=== PATIENT | male | born 1940 | race Caucasian/White ===

== ENCOUNTER → 2018-07-16 10:00 | Outpatient (CLI) | payer OTHER, SELFPAY ==
[2018-07-16 11:25] LABS: CREATININE 1.32 mg/dL (0.70-1.30); Estimated GFR 52.59 (mL/min/1.73m2); Glucose 86 mg/dL (70-100); Potassium 4.6 mmol/L (3.5-5.1)
== END ==
PROVIDERS: PCP Family Medicine; Visit Provider Family Medicine
DX: I10 Essential (primary) hypertension (principal); E74.39 Other disorders of intestinal carbohydrate absorption
CPT/HCPCS: 36415; 82947; 82565; 84132

== ENCOUNTER → 2018-07-26 08:21 | Outpatient (BNVA) | payer OTHER, SELFPAY | PROVIDERS: PCP Family Medicine; Referring Provider Family Medicine; Visit Provider Student in an Organized Health Care Education/Training Program | DX: M17.0 Bilateral primary osteoarthritis of knee (principal) | CPT/HCPCS: 99204; 99213; NC OV ==

== ENCOUNTER 2018-07-26 10:30 | Outpatient (CLI) | payer OTHER, SELFPAY ==
--- NOTE | 2018-07-26 08:34 | DI.RAD_ITS ---
SYMPTOM/DIAGNOSIS: LEFT KNEE PAIN LEFT KNEE: Comparison is made with 06 Aug 2012. There is now moderate to severe narrowing of the medial femoral tibial joint space and periarticular sclerosis. There is mild periarticular spurring. The lateral femoral tibial joint space appears well maintained. Narrowing and irregularity is seen at the patellofemoral joint which shows mild spurring. Mild spurring is seen from the tibial spines. Vascular calcifications are present. 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
--- NOTE | 2018-07-26 08:34 | DI.RAD_ITS ---
SYMPTOM/DIAGNOSIS: RIGHT KNEE PAIN RIGHT KNEE: Comparison is made with 06 Aug 2012. The femoral tibial joint spaces are well maintained. There is mild spurring from the femoral condyles, tibial plateaus and tibial spine. There is spurring and narrowing of the patellofemoral joint. No joint effusion is seen. Vascular calcifications are noted. IMPRESSION: Patellofemoral degenerative changes.
== END 2018-07-26 10:50 ==
PROVIDERS: PCP Family Medicine; Visit Provider Student in an Organized Health Care Education/Training Program
DX: M25.561 Pain in right knee (principal); M25.562 Pain in left knee; M17.0 Bilateral primary osteoarthritis of knee
CPT/HCPCS: 73562

== ENCOUNTER 2018-08-04 07:47 | Emergency (ER) | payer OTHER, SELFPAY ==
[2018-08-04 07:52] VITALS: BP 136/86; PULSE 86; RESP 16; TEMP 36.7; O2SAT 95
--- NOTE | 2018-08-04 08:04 | W.ED.GENAD ---
Discharge Plan Disposition Patient Disposition: HOME Discharge Details Chief Complaint: Cellulitis Clinical Impression: Abrasion forearm Primary Care Provider: Jackson Bocanegra ED Provider: Brad Kennedy Home Meds and New Rx's Prescriptions: New cephalexin 500 mg capsule 500 mg PO QID 7 Days Qty: 28 RF: 0 Continue multivitamin 1 EACH tablet 1 ea PO DAILY RF: 0 aspirin [Aspir-81] 81 MG tablet,delayed release (DR/EC) 81 mg PO DAILY RF: 0 albuterol sulfate [ProAir HFA] 8.5 GM HFA aerosol inhaler 2 puff Inhalation q 4 h prn Qty: 1 RF: 0 inhalational spacing device [Aerochamber Mini] 1 EACH spacer 1 ea Miscellaneous PRN Qty: 1 RF: 0 losartan 50 MG tablet 50 mg PO DAILY Qty: 90 RF: 3 simvastatin [Zocor] 40 MG tablet 40 mg PO DAILY Qty: 90 RF: 4 indomethacin 25 MG capsule 25 mg PO TID PRNQty: 30 RF: 0 Discharge Instructions Instructions: Abrasion (ED) Additional Instructions: if you have redness spreading up the arm or hands start taking the antibiotics if you have severe pain or fevers return to the emergency department Discharge Data Discharge Physician: Brad Kennedy Medical Decision Making MDM Narrative Medical decision making narrative: Patient is working for [employer] for [employer] and they were tearing a roof off yesterday and he wasn't wearing gloves and sustained multiple abrasions to the arms and hands. NO lacs to require sutures. NO evidence of infection at this time but advised if he has worsening redness to start taking the abx that I prescribed. Has full rom of all joints and fingers and no pain to suggest fx so do not feel imaging indicated Differential Diagnosis abrasions lacerations, sprain HPI - General Adult General Mode of arrival: ambulatory. Date/Time Provider Initiated Documentation: 08/04/18 07:50. Limitations to Documentation: no limitations. Information obtained by: patient. History of Present Illness 78 year old M presents to the emergency department with the chief complaint of scratches on arms, described as moderate, with intensity rated at 3. Quality is described as aching, and is localized to the upper extremity. Patient reports no radiation. Patient started experiencing this day(s) (1) and it has been constant. No relieving factors improve symptom(s), No exacerbating factors reported . Patient notes no other symptoms.. Patient did receive the following treatments prior to arrival, none Related Data Home Medications Medication Instructions Recorded Confirmed aspirin [Aspir-81] 81 mg PO DAILY tab-cap 04/20/13 08/04/18 multivitamin 1 ea PO DAILY 04/20/13 08/04/18 albuterol sulfate [ProAir HFA] 2 puff INHALATION q 4 h prn #1 08/29/16 08/04/18 inhaler inhalational spacing device #1 aer 08/29/16 08/04/18 [Aerochamber Mini] indomethacin 25 mg PO TID PRN #30 tab-cap 07/16/18 08/04/18 Previous Rx's Medication Instructions Recorded losartan 50 mg PO DAILY #90 tab-cap 04/20/18 simvastatin [Zocor] 40 mg PO DAILY #90 tab-cap 07/16/18 cephalexin 500 mg PO QID 7 Days #28 cap 08/04/18 Allergies Allergy/AdvReac Type Severity Reaction Status Date / Time FIRE ANT Allergy Unknown Uncoded 08/04/18 08:00 POLLEN Allergy Unknown Uncoded 08/04/18 08:00 General Stated Complaint: Cellulitis ZAK: 4 Review of Systems Review of Systems All systems reviewed & are unremarkable except as noted in HPI and below Constitutional Denies chills, Denies fever(s) and Denies weakness Eyes Patient Denies loss of vision ENT Denies change in voice Cardiovascular Denies chest pain and Denies dyspnea Respiratory Denies dyspnea Gastrointestinal Denies abdominal pain, Denies nausea and Denies vomiting Genitourinary Denies dysuria Musculoskeletal Denies joint swelling Integumentary/Breasts Denies rash Neurologic Denies loss of vision and Denies weakness Psychiatric Denies depression Endocrine Denies cold intolerance and Denies heat intolerance Allergic/Immunologic Reports urticaria PFSH Family History Mother Neoplasm Father Heart disease Leukemia Sister Diabetes Hyperlipidemia Asthma Grandfather Heart disease Cerebrovascular accident Grandfather No problems noted. Grandmother No problems noted. Grandmother Cerebrovascular accident Son Substance abuse Essential hypertension Daughter No problems noted. Social History Smoking/Tobacco Use Status: Never Surgical History Hemorrhoidal Banding REMOVAL OF VARICOSE VEINS (~03/2014) SHOULDER REPLACEMENT Exam Const General: no acute distress Orientation: alert [facility] Head: normal to inspection Ears: external ears normal General nose exam: external nose normal Mouth: moist mucous membranes Eyes General: appearance normal, both eyes and all related structures Neck Neck: normal visual inspection Resp Effort & Inspection: normal respiratory effort and able to speak in complete sentences Cardio Rate: regular rate Skin Nails: other (multiple superficial abrasions to both forearms and hands, right middle finger with anterior contusions, full rom of the finger with intact sensation and no pain on palpation) Neuro General: alert and oriented x3 Extrem General: full ROM and normal capillary refill Psych Mental Status: mental status grossly normal Course Vital Signs Temperature 36.7 C 08/04/18 07:52 Pulse 86 08/04/18 07:52 Respiratory Rate 16 08/04/18 07:52 Blood Pressure 136/86 08/04/18 07:52 Pulse Oximetry 95 08/04/18 07:52 Temperature 36.7 C 08/04/18 07:52 Pulse 86 08/04/18 07:52 Respiratory Rate 16 08/04/18 07:52 Blood Pressure 136/86 08/04/18 07:52 Pulse Oximetry 95 08/04/18 07:52
== END 2018-08-04 08:14 | disposition home or self-care (01) ==
PROVIDERS: Emergency Provider Emergency Medicine; PCP Family Medicine
DX: S50.811A Abrasion of right forearm, initial encounter (principal); S50.812A Abrasion of left forearm, initial encounter; W45.0XXA Nail entering through skin, initial encounter; I10 Essential (primary) hypertension
CPT/HCPCS: 99283

== ENCOUNTER 2019-07-14 01:11 | Outpatient (CLI) | payer OTHER, SELFPAY ==
[2019-07-14 12:51] LABS: CREATININE 1.38 mg/dL (0.70-1.30); Estimated GFR 49.83 (mL/min/1.73m2); Potassium 4.7 mmol/L (3.5-5.1); Uric Acid 7.9 mg/dL (3.5-7.2)
[2019-07-14 13:17] LABS: Calculated LDL 73 mg/dL; Cholesterol 124 mg/dL (50-200); HDL Cholesterol 40 mg/dL (40-60); Triglyceride 59 mg/dL (30-150)
== END 2019-07-14 01:31 ==
PROVIDERS: PCP Family Medicine; Visit Provider Family Medicine
DX: I10 Essential (primary) hypertension (principal); E78.5 Hyperlipidemia, unspecified; M10.9 Gout, unspecified
CPT/HCPCS: 36415; 80061; 82565; 84132; 84550

== ENCOUNTER 2019-08-29 06:59 | Outpatient (CLI) | payer OTHER, SELFPAY ==
--- NOTE | 2019-08-29 09:47 | DI.RAD_ITS ---
EXAM: XR HIP RT COMPLETE AP PELVIS INDICATION: hip pain on right, M25.551, back pain, M54.9 dorsalgia. COMPARISON: XR LUMBAR SPINE COMPLETE from 08/29/2019 TECHNIQUE: 2D digital imaging was performed. FINDINGS: Three views were obtained. There is marked loss of the cartilaginous joint spaces of both hips with subchondral sclerosis of the acetabular leading and to a lesser degree the femoral heads bilaterally. Mild hypertrophic spurring of the acetabula noted bilaterally as well. 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
--- NOTE | 2019-08-29 09:47 | DI.RAD_ITS ---
EXAM: XR LUMBAR SPINE COMPLETE INDICATION: rt hip pain, M25.551. COMPARISON: No exams were available for comparison TECHNIQUE: 2D digital imaging was performed. FINDINGS: Five views were obtained. There is a moderate left convex lumbar scoliosis. There is loss of disc h eight throughout the lower thoracic lumbar spine consistent with disc degeneration. Mild endplate co mpression fractures noted at multiple levels, no significant anterior compression fracture seen. Obi y prominent vertebral endplate and facet hypertrophic degenerative changes noted. IMPRESSION: scoliosis and severe DJD.
== END 2019-08-29 07:19 ==
PROVIDERS: PCP Family Medicine; Visit Provider Family Medicine
DX: M25.551 Pain in right hip (principal); M54.5 Low back pain; M16.0 Bilateral primary osteoarthritis of hip; M41.26 Other idiopathic scoliosis, lumbar region; M51.36 Other intervertebral disc degeneration, lumbar region
CPT/HCPCS: 72110; 73502

== ENCOUNTER 2020-03-30 01:48 | Outpatient (CLI) | payer OTHER, SELFPAY ==
[2020-03-30 11:29] LABS: HCT 49.3 % (40.0-50.0); HGB 16.8 g/dL (13.5-17.5); Mean Corp. HGB Concentration 34.1 g/dL (32.0-36.0); Mean Corpuscular Hemoglobin 30.7 pg (27.0-33.0); Mean Platelet Volume 10.1 fL (8.0-11.0); Platelet Count 192 x1000/uL (130-400); RBC 5.48 m/cumm (4.50-6.00); RBC Distribution Width 13.8 % (11.8-14.1); White Blood Cell Count 8.02 k/cumm (4.4-10.8)
[2020-03-30 13:13] LABS: Anion Gap 8.3 mmol/L (3-11); BUN 21 mg/dL (7-18); CO2 27.7 mmol/L (21.0-32.0); CREATININE 1.52 mg/dL (0.70-1.30); Calcium 9.6 mg/dL (8.5-10.1); Chloride 104 mmol/L (98-107); Estimated GFR 44.58 (mL/min/1.73m2); Glucose 88 mg/dL (74-106); Potassium 4.7 mmol/L (3.5-5.1); Sodium 140 mmol/L (136-145)
[2020-03-31 14:51] LABS: COVID-19 RT-PCR Result NEGATIVE (Negative)
== END 2020-03-30 02:08 ==
PROVIDERS: PCP Family Medicine; Visit Provider Student in an Organized Health Care Education/Training Program
DX: M25.562 Pain in left knee (principal); M17.12 Unilateral primary osteoarthritis, left knee; Z11.59 Encounter for screening for other viral diseases; Z01.818 Encounter for other preprocedural examination; Z01.812 Encounter for preprocedural laboratory examination
CPT/HCPCS: 36415; 80048; 85027; U0003

== ENCOUNTER 2020-03-30 10:43 | Outpatient (CLI) | payer OTHER, SELFPAY ==
--- NOTE | 2020-03-30 10:15 | DI.RAD_ITS ---
EXAM: XR STANDING ALIGNMENT CLINICAL HISTORY: PRE OP TECHNIQUE: COMPARISON: CR XR KNEE LT 1V from 03/30/2020 FINDINGS: Standing AP alignment views of both lower extremities and lateral view of the left knee were obtained . There is marked loss of the cartilaginous joint spaces of both hips with prominent marginal osteophyt e formation of the acetabula E and to a lesser degree femoral heads. Findings are consistent with mo derate to severe degenerative change. There is marked narrowing of medial tibiofemoral cartilaginous joint space of the left knee with mild subchondral sclerosis of the proximal tibia and mild marginal osteophyte formation. No other signif icant findings. IMPRESSION: DJD left knee medial tibiofemoral joint and both hips.
== END 2020-03-30 11:03 ==
PROVIDERS: PCP Family Medicine; Referring Provider Family Medicine; Visit Provider Student in an Organized Health Care Education/Training Program
DX: M25.562 Pain in left knee (principal); M17.12 Unilateral primary osteoarthritis, left knee; M16.0 Bilateral primary osteoarthritis of hip
CPT/HCPCS: 73560; 77073

== ENCOUNTER 2020-04-03 07:26 | Observation (INO) | payer OTHER, SELFPAY ==
[2020-04-03] VITALS (9 sets, daily range): BP systolic 116–135; BP diastolic 78–95; PULSE 61–77; RESP 13–20; TEMP 36.4–36.8; O2SAT 94–99
[2020-04-03] MEDS: Celecoxib 200 MG CAP 400 MG PO (08:06)
[2020-04-03] MEDS: Acetaminophen 500 MG TAB 1000 MG PO (08:06)
[2020-04-03] MEDS: Gabapentin 300 MG CAP PO (08:06)
[2020-04-03] MEDS: Lactated Ringers 1,000 ML 80 ML IV (08:07)
[2020-04-03] MEDS: ceFAZolin 2 GM/50 ML BAG IVPB (09:41)
[2020-04-03] MEDS: Ketorolac 30 MG/ML VIAL (10:21)
[2020-04-03] MEDS: Bupivacaine 0.25% Pres-Free 30 ML VIAL (10:23)
[2020-04-03] MEDS: Normal Saline 20 ML VIAL (10:24)
--- NOTE | 2020-04-03 11:32 | DSE_ITS ---
Date of service: 04/03/20 Time of Service: 13:19 DS: Diagnosis Discharge Diagnosis (1) Unilateral primary osteoarthritis, left knee: Status: Chronic Discharge Plan Disposition Patient Disposition: HOME Condition: Good Discharge Details Reason For Visit: (L) TKR Admit Date/Time: 04/03/20 07:26 Admit Provider: Dallin Robles Attending Provider: Dallin Robles Primary Care Provider: Jackson Bocanegra Hospital Course Hospital Course: Patient was admitted to the medical/surgical floor following the procedure. The surgery was tolerated well without any notable medical, surgical, or anesthetic complications. Mobilization began postoperatively. Vitals were stable. Physical therapy worked with the patient and was cleared for discharge home. No acute medical issues. Pain was controlled on oral regimen. Home Meds and New Rx's Prescriptions: New celecoxib 200 mg capsule 200 mg PO BID PRN (Reason: pain) Qty: 60 RF: 1 aspirin 81 mg tablet,delayed release (DR/EC) 81 mg PO BID Qty: 60 RF: 0 acetaminophen 500 mg tablet 1,000 mg PO Q8H PRN (Reason: pain) Qty: 90 RF: 3 pantoprazole 40 mg tablet,delayed release (DR/EC) 40 mg PO DAILY Qty: 30 RF: 0 gabapentin 300 mg capsule 300 mg PO QHS Qty: 7 RF: 0 oxycodone 5 mg tablet 5 mg PO Q4H Qty: 12 RF: 0 Continued losartan 50 mg tablet 50 mg PO DAILY Qty: 90 RF: 3 simvastatin [Zocor] 40 mg tablet 40 mg PO DAILY Qty: 90 RF: 4 multivitamin 1 EACH tablet 1 ea PO DAILY RF: 0 albuterol sulfate [ProAir HFA] 8.5 GM HFA aerosol inhaler 2 puff Inhalation q 4 h prn Qty: 1 RF: 0 indomethacin 25 mg capsule 25 mg PO TID PRN (Reason: gout) Qty: 30 RF: 1 Discontinued aspirin [Aspir-81] 81 MG tablet,delayed release (DR/EC) 81 mg PO DAILY RF: 0 Discharge Instructions Additional Instructions: Dr. Robles?s Total Knee Discharge Instructions Activity: The most important activity is to walk. You should try to take short walks a few times a day. It is important that when resting you work on keeping the knee straight. Avoid putting a pillow behind the knee as this will encourage flexion. Work on range of motion exercises as provided by Physical Therapy and the preoperative booklet. - Start outpatient physical therapy within 2 weeks. - You should wear the JULIAN hose on both legs for 2 weeks. Dressing: Keep the surgical dressing (Mepilex) in place for at least one week. If you went home on the surgical day, you should remove the JOAQUIM wrap on the second day and then apply the JULIAN hose. The dressing may get wet after 3 days but avoid soaking the dressing. If it gets wet, just lightly pat dry. Most patient prefer to cover with ClingWrap or Saran Wrap to keep the dressing dry. After the first week, the dressing may be removed and replaced with light gauze and tape or nothing. Medications: - You should take Tylenol and anti-inflammatory Celebrex as your primary pain control medications. If Celebrex is not covered, you can use Ibuprofen 600mg every 8 hours. - You have been prescribed a stronger pain medication Oxycodone for breakthrough pain, take as needed as prescribed. - You have also been prescribed a stomach acid reduction agent Pantoprozole to help reduce stomach acid and reflux. - You will be taking Aspirin 81mg twice a day for DVT prevention unless instru cted otherwise. - If you have constipation you should take Colace or Miralax (both [id number]). It takes most people 3-4 days to have a bowel movement. Follow-up: 2 weeks. You should also call physical therapy to work on scheduling outpatient therapy sessions which can begin at 2 weeks. If you have any acute concerns or questions, please do not hesitate to contact the office at [phone]. You may contact Dr. Robles with any questions after hours through the hospital at [phone] or on his cell phone at [phone]. Referrals: [facility] [Provider Group] - 04/17/20 Dallin Robles MD [ [facility] STAFF PHYSICIAN] - Activity:: Activity as Tolerated Equipment/Supplies:: Walker Diet:: As Tolerated Discharge Orders Discharge Orders: Discharge Order (Routine); Ordered 04/03/20 Ordered By: Dallin Robles DS: Summary Status at Discharge Functional status at discharge: uses cane/walker Overall status at discharge: patient is progressing back to baseline Mental Status: mental status grossly normal Speech and Movement: speech and movement normal Mood: congruent mood Affect: normal affect Exam Psych Mental Status: mental status grossly normal Speech and Movement: speech and movement normal Mood: congruent mood Affect: normal affect DS: Data Vitals/I&O Vitals and I&O: Vital Signs Temperature 36.8 C 04/03/20 07:54 Pulse 68 04/03/20 07:54 Pulse Rhythm Regular 04/03/20 07:54 Respiratory Rate 18 04/03/20 07:54 Blood Pressure 135/94 H 04/03/20 07:54 Pulse Oximetry 99 04/03/20 07:54 Oxygen Delivery Method Room Air 04/03/20 07:54 Oxygen Flow Rate 0 04/03/20 07:54 Intake & Output 04/02/20 04/02/20 04/03/20 11:59 23:59 11:59 Intake Total 410 / 410 Output Total 300 / 300 Balance 110 / 110 Weight 106.1 kg Intake: IV 410 / 410 Output: Estimated Blood Loss 300 / 300 PFSH Surgical History Hemorrhoidal Banding REMOVAL OF VARICOSE VEINS (~03/2014) SHOULDER REPLACEMENT 03/2015; LEFT, 09/2016; RIGHT Family History Mother , 59 Breast cancer Cancer of spine Father , 74 Heart disease Leukemia Sister Diabetes Hyperlipidemia Asthma Maternal Grandfather , 56 Heart disease Stroke Paternal Grandfather , ACCIDENTAL at age 72. No problems noted. Maternal Grandmother , 63 No problems noted. Paternal Grandmother , 92 Stroke Son , 27 Substance abuse Essential hypertension Daughter No problems noted. Social History Smoking/Tobacco Use Status: Never Alcohol Intake: current Alcohol Intake frequency: 0-2 drinks per day Alcohol type: beer Details: 0.5-1 beer/daily Drug use: Never Substance use type: does not use Caregiver/Support person: No Household members: spouse Housing: house Communication Needs: Corrective Lenses Pets and animals: No Sexually active: Yes Do you think of yourself as: straight/heterosexual Current gender identity: male What is your relationship status?: How often do you talk on the phone with friends or family?: three or more times per week How often do you get together with friends or relatives?: three or more times per week How often do you attend restorationist or baptist services?: 4 or more times per year Do you belong to any clubs or organized social groups?: no Panel score (0-1 are the most socially isolated patients): 3 What type of physical activity do you participate in: walking Duration: 60-90 minutes/day Frequency: 5-6 times per week Elisha/Rastafari: Rastafarian Special elisha needs: No Seatbelt use: always Helmet use: Yes Helmet use: always Drive intox or ride w/intox driver supervisor: No Do you feel safe in your relationship?: Yes
[2020-04-03] MEDS: ceFAZolin 1 GM/50 ML BAG IVPB (13:08)
--- NOTE | 2020-04-03 13:24 | IN_ITS ---
Date of service: 04/03/20 Time of Service: 13:24 PT Notes Visit Reasons: (L) TKR Physical Therapy Inpatient Initial Evaluation Date: 04/03/2020 Referring Doctor: Dallin Robles MD PT Orders: PT CONSULT: Status post Ortho surgery. Status post left TKA. Hopeful same-day discharge Precautions: Fall. Standard. WBAT on left LE. Patient Profile/Admitting Diagnosis: Fabrizio is a 71 [id number] male with primary unilateral osteoarthritis of left knee status post total knee arthroplasty on postoperative day 0. PMHX: Surgical History (Updated 03/30/20 @ 10:43 by Anupama Collins) Hemorrhoidal Banding REMOVAL OF VARICOSE VEINS (~03/2014) SHOULDER REPLACEMENT 03/2015; LEFT, 09/2016; RIGHT Social History/Home Situation: Fabrizio lives with in a private home with 2 steps to enter and a rail on one side. Fabrizio is independent with all aspects of ADLs prior to surgery without any assistive ambulatory device nor adaptive equipment. Equipment Owned/DME: Front wheeled walker Subjective: Fabrizio looks forward to getting his physical therapy done today and is hopeful to be going home later this afternoon. He reports no pain nor discomfort on the left knee. He denies any headache, chest pain, and dizziness throughout session. He states that he will follow everything that needs to be done so that he can recover the fastest from the surgery. Denies any tingling nor any numbness on the left lower extremity. Objective: General Observation: IV access open in the right UE. Tony wraps on left knee. Mental Status: Alert and oriented x4 Pain: 0/10 ROM: Right Upper Extremity: Shoulder Flexion WFL. Shoulder abduction WFL. Elbow f lexion WFL. Wrist flexion WFL. Opening and closing of hand WFL. Left Upper Extremity: Shoulder Flexion WFL. Shoulder abduction WFL. Elbow flexion WFL. Wrist flexion WFL. Opening and closing of hand WFL. Right Lower Extremity: Hip flexion WFL. Hip abduction WFL. Knee flexion WFL. Ankle dorsiflexion WFL. Ankle plantarflexion WFL. Left Lower Extremity: Hip flexion WFL. Hip abduction WFL. Knee flexion allows up to 100 degrees. Left knee extension -5 degrees. Ankle dorsiflexion WFL. Ankle plantarflexion WFL. Strength: Right Upper Extremity: Shoulder flexors 5/5. Shoulder abductors 5/5. Elbow fl exors 5/5. Elbow extensors 5/5. Electrocardiogram Technician strong. Left Upper Extremity: Shoulder flexors 5/5. Shoulder abductors 5/5. Elbow flexors 5/5. Elbow extensors 5/5. Electrocardiogram Technician strong. Right Lower Extremity: Hip flexors 5/5. Hip abductors 5/5. Knee flexors 5/5. Knee extensors 5/5. Ankle dorsiflexors 5/5. Ankle plantarflexors 5/5. Left Lower Extremity:Hip flexors 5/5. Hip abductors 5/5. Knee flexors 3-/5. Knee extensors 3-/5. Ankle dorsiflexors 5/5. Ankle plantarflexors 5/5. Sensation: Intact as to pain and pressure on bilateral lower extremities. Bed Mobility/Transfers: Rolling independent Supine to sit independent Sit to supine independent Sit to stand supervision, minimal cueing for hand placement, requires use of front wheeled walker Stand to sit supervision, minimal cueing for hand placement, requires use of front wheeled walker Bed to chair supervision, minimal cueing for hand placement, requires use of front wheeled walker Chair to bed supervision, minimal cueing for hand placement, requires use of front wheeled walker Gait: Patient tolerated level surface ambulation of 150 feet x 2 using front wheeled walker with supervision. Step through gait pattern. No report of pain throughout ambulation activity. Patient also tolerated up-and-down six 4 inch steps and four 6 inch steps while holding onto bilateral rails with supervision using a step over step gait pattern without any discomfort. Balance: Static Sitting: Normal Dynamic Sitting: Normal Static Standing: Fair Dynamic Standing: Fair Special Tests: Mobility Limitations Standardized Measure [facility] 6 clicks Basic Mobility Inpatient Short Form: Raw Score: 23 CMS Score: 11% deficit Informed Consent/Education: Patient instructed in purpose of PT consult and plan of care. Assessment: Fabrizio presents with mobility ADL dependence requiring of any the use of a front wheeled walker for all transfers and ambulation task performance for discharge to home. Fabrizio is a 71 [id number] male with primary unilateral osteoarthritis of left knee status post total knee arthroplasty on postoperative day 0. Patient presents with clinical signs and symptoms consistent with current/ad mitting diagnoses that have resulted to mobility limitations, gait instability, generalized weakness, and impairment of motor control as demonstrated by the following impairment level findings: 1. Decreased strength to B LE major muscle groups 2. Impaired standing balance 3. Limitation of joint range of motion in left knee Impairments are contributing to the following functional limitations: 1. Inability to safely ambulate without assistive device and physical assistance 2. Increase completion time for mobility ADL performance 3. Increased fall risk 4. Inability to negotiate steps alone safely Patient is assessed as a 20100 moderate complexity based on the following: History: 79-year-old male with impairment level findings, functional limitations, and past medical history as listed above Examination: Demonstrable impairment in strength, balance, and range of motion with underlying impairments and functional limitations as documented above Presentation: Evolving Decision Makin moderate complexity Goals: N/A. Patient to go home once medically cleared by orthopedic surgeon hopefully same day. Plan of Care/Treatment Plan: N/A. Patient to go home once medically cleared by orthopedic surgeon hopefully same day. PT Intervention: Session today consisted of initial physical therapy evaluation as well as education training on mobility ADL performance using the front wheeled walker. DISCHARGE RECOMMENDATIONS: Home with when medically cleared. No equipment needs at this time. Patient may benefit from outpatient physical therapy services as advised by orthopedic surgeon. TREATMENT CODE/TIME: 35751 x 30 minutes, 18778 x 23 minutes beginning at 1320 4 PM Thank you very much for this referral. Emmanuelle Taveras PT, DPT, CLT [facility] [place], [place]
--- NOTE | 2020-04-03 20:03 | ROE_ITS ---
Date of service: 04/03/20 Time of Service: 11:03 Operative Note Operative Note DATE OF PROCEDURE: 04/03/20 PRE-OP DIAGNOSIS: Left Knee Osteoarthritis POST-OP DIAGNOSIS: same PROCEDURE: Left Total Knee Replacement SURGEON: Dallin Robles BUTTON CLAMPER: Randi Kelly ANESTHESIA: regional and spinal ESTIMATED BLOOD LOSS: 300 PATHOLOGY: none sent TOURNIQUET TIME: 32 COMPLICATIONS: None Patient was transported to: PACU Patient's condition: stable Implants: 1. Depuy Attune Cruciate Retaining Femoral Component, Size 7 2. Depuy Attune Rotating Platform Tibial Component, Size 7 3. Depuy Attune 7 x 8 mm CR,RP Poly 4. Depuy Attune Patellar Component, Size 35 mm Indications: I have seen Jimmy in clinic for symptoms of left knee arthritis, confirmed with radiographic findings. Jimmy has exhausted nonoperative methods and was having significant limitations in daily function and desired better function and less pain. I discussed the technical details of a knee replacement. I explained the risks of the procedure to include, but not limited to, bleeding, infection, pain, stiffness, fracture, damage to nerves and vessels, damage to muscles and tendons, loosening, need for repeat procedure, blood clot and cardiopulmonary demise. Despite these risks, Jimmy elected to proceed. Findings: There was significant signs of arthritis throughout the knee. These are mostly focused into the medial compartment with complete loss of cartilage over the medial, distal femur and the medial, posterior tibia. Procedure Description: Jimmy was greeted in the preoperative holding area where the correct side was identified and marked. The consent was reviewed with the patient and signed. The history and physical was updated. All questions were answered. Preoperative mediacations were administered: Acetaminophen 1000mg, Celebrex 400mg, and Gabapentin 300mg. An adductor canal block was then administered by the anesthesia team in the PACU. Jimmy was taken back to the operating room. A spinal anesthestic was then administered. The patient was placed into the supine position on the operating room table. A nonsterile tourniquet was placed high onto the leg but only used for cementing. Posts were placed for positioning during the procedure. All bony prominences were well padded. Prophylactic antibiotics in the form of cefazolin were administered. 1g of Tranxemic Acid was given intravenously within 30 minutes of incision. The left leg was then prepped with Chloraprep and draped in a standard fashion with impervious stockinette and extremity drape. A second prep with Chloraprep was performed prior to placing Ioband. A timeout to confirm correct identity, side and site, procedure, allergies, anesthesia, and medical concerns was performed. With the knee in some flexion, a midline incision was made overlying the knee. Full thickness skin flaps were raised once the extensor mechanism was encountered. These were raised medially and laterally. Any bleeding was c ontrolled with electrocautery. Once the extensor mechanism was fully exposed, a medial parapatellar arthrotomy was performed in a flexed position. All bleeding from the arthrotomy and the geniculate arteries was coagulated. A medial subperiosteal peel was performed with electrocautery to the midcoronal plane. The fat pad was removed while keeping the patellar tendon protected. The anterior distal femur synovium was removed for later visualization. The ACL and PCL were resected and the anterior horn of the lateral meniscus was transected. The knee was then flexed with the patella everted. Large osteophytes from the tibia were removed. Large osteophytes from the femur were removed. Using a step drill, and based on preoperative templating, the femoral canal was entered. This was done with a step drill without any difficulty. The intramedullary distal femoral cut guide was inserted, set to a 5 degree valgus cut and 9mm cut thickness. The distal femoral cut guide was then held in position and pinned. With the soft tissues protected, the distal cut was performed. This was passed over a few times to ensure a planar cut. I then turned attention to the tibia. The extramedullary guide was placed onto the leg. The distal aspect was slid medial to adjust for position of center of ankle and stay in line with shaft of the tibia. Approximately 3-5 degrees of posterior slope was kept in the proximal cutting guide. The center of the guide was aligned with the PCL. The stylus was used to assess cut thickness. The medial side, most involved side, was set for a 3mm cut. This was then held in position and pinned into place with 2 additional pins and a cross pin for stability. The medial and lateral collateral ligaments were protected and the cut was performed. With this completed, it was assessed and noted to be of appropriate dimensions. The guide was removed. A spacer block was inserted and the knee was brought into extension. The 8mm spacer block provided full extension, without hyperextension and with stability of both the medial and lateral collateral ligaments was assessed. The pins from the femur and the tibia were then removed. The distal femur was then sized. The anterior stylus was placed onto the lateral ridge of the anterior femur. This indicated a size 7 femur. The external rotation of the guide was adjusted to 5 degrees to match the epicondylar axis, perpendicular to Radha?s line. The 4-in-1 cutting guide was the placed. The posterior medial femur cut was evaluated and appeared of good thickness. The spacer block was inserted underneath the cutting guide and stability was confirmed in 90 degrees of flexion. An nessa wing was used to confirm appropriate position of the anterior cut to avoid notching. This cutting guide was ensured to be flush on the cut surface and then pinned into place with headed pins. While protecting the soft tissues, quad tendon, and collateral ligaments, the anterior and posterior cuts were performed with a saw. The central two pins were removed and the posterior and anterior chamfers were cut next. The notch-cutting guide was placed. This was pinned to lateralize the femoral component as much as possible while keeping it flush on the cut surface. This was then pinned into position. A reciprocating saw was used to make the small notch cut. A trial CR femoral component was then inserted, impacted down to the cut surfaces, and the lug holes were drilled. A provisional trial tibial component was placed and the knee was brought through range of motion. There was noted to be excellent extension and flexion. There was no significant instability. The patella was tracking without thumbs. The tibial cut surface was fully exposed. The medial and lateral menisci were removed. The tibia was then sized as a 7. The tibia had been previously marked during trialing to correspond to the center of the tibial component to help with rotation. The trial was aligned to this randi, approximately rotated to the medial 1/3rd of the tibial tubercle. The trial was pinned into place. The tibia was prepared with a reamer and a keel punch. The knee was then brought into extension and the patella was measured as 27mm. Using the patellar clamp and cut guide, this was resected to a flat surface with at least 13mm of thickness remaining. The size 35 patella fit the best. This was oriented and then clamped into position. The lugs were drilled. The trial components were removed. The final components, except for the polyethylene were opened on the back table. The periosteal and capsular tissues, especially posteriorly, around the knee were then systematically injected with a periarticular cocktail consisting of 50cc 0.25% Marcaine, 30mg Ketorolac, 20cc of Exparal and 50cc of injectable saline. The tourniquet was then inflated to 275mmHg. The knee was thoroughly irrigated with a pulse lavage and dried. On the back table, with the implants opened, the cement was mixed. 2 batches of antibiotic laden cement were prepared with vacuum assistance. After the cement was ready it was placed on to the back side of the tibial component. A small amount was placed onto the posterior flange of the femur. Cement was manual pressurized and impregnated into the cut surface of the tibia. The tibial component was then inserted into the cut surface and impacted into position. Excess cement was removed and the component was reimpacted. Again, excess cement was removed and our attention was then turned to the femur. The femoral cut surface was once again dried and cement was manually impacted into the cut surface. The femoral component was lined with the lug holes and impacted. Excess cement was removed. It was ensured to be down against the cut surface. The trial polyethylene was then inserted and the leg was brought out into full extension for the duration of the cement curing process, approximately 15min. Cement was lastly manually impacted into the cut surface of the patella and the patellar button was clamped into position and held. During this process attention was turned to the gutters of the knee and for all interfaces for any excess cement. While the cement was hardening, the knee was irrigated with Irrisept chlorhexadine solution. It was allowed to sit in the knee for 3 minutes. After the cement had finally cured, approximately 15min, the clamp was removed from the patella and the knee was taken through range of motion. A size 8 mm polyethylene component provided the best range of motion and stability with less than 2mm gapping with medial and lateral stress and full extension without significant hyperextension. The patella was tracking with a no-thumbs technique. The trial poly was removed and once again the knee was checked for any loose, excess, or errant cement. The poly component was then inserted into position after cleaning and drying the tibial tray. The capsule was then reapproximated with a No. 1 Vicryl at multiple locations. The capsule was finally closed with a No. 2 Stratafix, barbed suture. The tourniquet was then released and the arthrotomy appeared watertight without significant bleeding. The second dosing of 1g TXA was started. Deep tissues were then reapproximated with 0 Vicryl and 2-0 Vicryl. The skin was closed with a running 3-0 Monocryl in a subcuticular fashion. This was reinforced with skin glue. A Mepilex silver dressing was applied along with a [id number] JOAQUIM wrap. A CryoCuff was applied. Jimmy was transferred to the hospital bed without difficulty an suffering no apparent complication. Jimmy has a good prognosis. Physical therapy will start today and without restrictions, weight-bearing as tolerated. Aspirin 81mg BID will be used for DVT prophylaxis.
== END 2020-04-03 16:00 | disposition home or self-care (01) ==
LOC: PDS 12:18 → MS 12:18
PROVIDERS: Admitting Provider Student in an Organized Health Care Education/Training Program; PCP Family Medicine; Visit Provider Student in an Organized Health Care Education/Training Program
PROC: 0SRD0J9 Replacement of Left Knee Joint with Synthetic Substitute, Cemented, Open Approach (ICD-10-PCS; CPT 27447; principal; 2020-04-03 10:30)
DX: M17.12 Unilateral primary osteoarthritis, left knee (principal); M25.562 Pain in left knee; Z96.652 Presence of left artificial knee joint; G89.18 Other acute postprocedural pain
CPT/HCPCS: 27447; C1776; 76942; 97162; 97530; NC; G0378; J0690; J1885; J2405; J3010

== ENCOUNTER 2020-04-20 11:26 | Outpatient (CLI) | payer OTHER, SELFPAY ==
--- NOTE | 2020-04-20 10:45 | DI.RAD_ITS ---
EXAM: XR KNEE LT 1V CLINICAL HISTORY: f/u L TKA TECHNIQUE: COMPARISON: CR XR KNEE LT 1V from 03/30/2020 FINDINGS: Lateral view of the left knee was obtained and shows total knee joint replacement position. Componen ts appear well seated. No other significant bony abnormality seen. IMPRESSION:
--- NOTE | 2020-04-20 10:45 | DI.RAD_ITS ---
EXAM: XR STANDING ALIGNMENT CLINICAL HISTORY: f/u L TKA TECHNIQUE: COMPARISON: CR XR STANDING ALIGNMENT from 03/30/2020 FINDINGS: AP standing alignment views were obtained. There appear to be degenerative changes of both hips. Th ere is a total knee joint replacement position on the left. Mild degenerative changes of the tibiofe moral joints noted on the right. IMPRESSION:
== END 2020-04-20 11:46 ==
PROVIDERS: PCP Family Medicine; Referring Provider Family Medicine; Visit Provider Student in an Organized Health Care Education/Training Program
DX: M17.12 Unilateral primary osteoarthritis, left knee (principal); M16.0 Bilateral primary osteoarthritis of hip; Z96.652 Presence of left artificial knee joint
CPT/HCPCS: 73560; 77073

== ENCOUNTER 2020-07-30 03:49 | Outpatient (CLI) | payer OTHER, SELFPAY ==
[2020-07-30 13:19] LABS: BUN 23 mg/dL (7-18); CREATININE 1.49 mg/dL (0.70-1.30); Calcium 9.2 mg/dL (8.5-10.1); Chloride 106 mmol/L (98-107); Glucose 129 mg/dL (74-106); Potassium 4.6 mmol/L (3.5-5.1); Sodium 142 mmol/L (136-145)
== END 2020-07-30 04:09 ==
PROVIDERS: PCP Family Medicine; Visit Provider Family Medicine
DX: E87.1 Hypo-osmolality and hyponatremia (principal)
CPT/HCPCS: 36415; 80048

== ENCOUNTER 2020-08-03 01:05 | Outpatient (CLI) | payer OTHER, SELFPAY ==
[2020-08-03 13:33] LABS: Hemoglobin A1C 5.7 % (<5.7)
== END 2020-08-03 01:25 ==
PROVIDERS: PCP Family Medicine; Visit Provider Family Medicine
DX: R73.9 Hyperglycemia, unspecified (principal)
CPT/HCPCS: 36415; 83036

== ENCOUNTER 2020-08-22 00:53 | Outpatient (CLI) | payer OTHER, SELFPAY ==
--- NOTE | 2020-08-22 09:15 | DI.DEXA_ITS ---
EXAM: XR DEXA BONE DENSITY W/WO RED CLINICAL HISTORY: loss of height, BONE PAIN M89.8X9 DISORDER OF BONE TECHNIQUE: COMPARISON: No exams were available for comparison FINDINGS: DEXA scan was performed according to the usual protocol. Findings for left hip scanning are T-score 0.6. Findings for lumbar spine scanning are T-score 2.8. Findings for left forearm scanning are T-score 1.1. IMPRESSION: Findings consistent with normal bone density according to the WHO criteria. The lateral vertebral sc anogram shows mild anterior compression fractures of 2 lumbar vertebral bodies. RADIATION DOSE DELIVERED: Total DLP
== END 2020-08-22 01:13 ==
PROVIDERS: PCP Family Medicine; Visit Provider Family Medicine
DX: M89.8X0 Other specified disorders of bone, multiple sites (principal); M48.56XA Collapsed vertebra, not elsewhere classified, lumbar region, initial encounter for fracture
CPT/HCPCS: 77080

== ENCOUNTER 2021-04-08 10:57 | Outpatient (CLI) | payer OTHER, SELFPAY ==
--- NOTE | 2021-04-08 09:15 | DI.RAD_ITS ---
Exam(s) XR KNEE LT 2V AP,LAT EXAM: XR KNEE LT 2V AP,LAT CLINICAL HISTORY: annual f/u L TKA. TECHNIQUE: 2D digital imaging was performed. COMPARISON: CR XR KNEE LT 1V from 04/20/2020 FINDINGS: There is stable alignment of the components of the knee prosthesis. No fracture or loosening. No ra diographic evidence of osteomyelitis. IMPRESSION: DATA REPOSITORY: RADIATION DOSE DELIVERED:
== END 2021-04-08 10:58 | disposition home or self-care (01) ==
LOC: DIORS 10:58
PROVIDERS: PCP Family Medicine; Referring Provider Family Medicine; Visit Provider Student in an Organized Health Care Education/Training Program
DX: Z96.652 Presence of left artificial knee joint (principal); Z47.1 Aftercare following joint replacement surgery; M17.0 Bilateral primary osteoarthritis of knee
CPT/HCPCS: 99213; 73560

== ENCOUNTER 2021-07-24 10:12 | Outpatient (CLI) | payer OTHER, SELFPAY ==
[2021-07-24 12:55] LABS: Anion Gap 8.5 mmol/L (3-11); BUN 21 mg/dL (7-18); CO2 28.5 mmol/L (21.0-32.0); CREATININE 1.3 mg/dL (0.70-1.30); Calcium 9.2 mg/dL (8.5-10.1); Chloride 104 mmol/L (98-107); Estimated GFR 53.12 (mL/min/1.73m2); Glucose 89 mg/dL (74-106); Potassium 4.4 mmol/L (3.5-5.1); Sodium 141 mmol/L (136-145)
== END 2021-07-24 10:13 | disposition home or self-care (01) ==
LOC: LOS 10:12
PROVIDERS: PCP Family Medicine; Referring Provider Family Medicine; Visit Provider Family Medicine
DX: E87.1 Hypo-osmolality and hyponatremia (principal)
CPT/HCPCS: 36415; 80048

== ENCOUNTER 2022-07-31 04:38 | Outpatient (CLI) | payer MEDICARE, SELFPAY ==
[2022-07-31 12:30] LABS: Anion Gap 3.6 mmol/L (3-11); BUN 22 mg/dL (7-18); CO2 31.4 mmol/L (21.0-32.0); CREATININE 1.5 mg/dL (0.70-1.30); Calcium 9.7 mg/dL (8.5-10.1); Chloride 102 mmol/L (98-107); Estimated GFR 46.48 (mL/min/1.73m2); Glucose 99 mg/dL (74-106); Potassium 4.7 mmol/L (3.5-5.1); Sodium 137 mmol/L (136-145); Uric Acid 8.3 mg/dL (3.5-7.2)
== END 2022-07-31 04:39 | disposition home or self-care (01) ==
LOC: LOS 04:39
PROVIDERS: PCP Family Medicine; Visit Provider Family Medicine
DX: M10.9 Gout, unspecified (principal); E87.1 Hypo-osmolality and hyponatremia
CPT/HCPCS: 36415; 80048; 84550

== ENCOUNTER 2023-09-28 13:12 | Outpatient (CLI) | payer MEDICARE, SELFPAY ==
--- NOTE | 2023-09-28 08:00 | DI.RAD_ITS ---
Exam(s) XR KNEE RT 2V AP,LAT XR STANDING ALIGNMENT EXAM: XR STANDING ALIGNMENT CLINICAL HISTORY: pain. TECHNIQUE: 2D digital imaging was performed. Standing AP views were performed from the pelvis throu gh the ankles. COMPARISON: CR XR STANDING ALIGNMENT from 04/20/2020 CR XR KNEE LT 2V AP,LAT from 04/08/2021 CR XR KNEE RT 2V AP,LAT from 09/28/2023 FINDINGS: BONES: No acute fracture is present. No bony destructive lesion is seen. Leg length discrepancy: Minimal JOINTS: Knees: Left knee prosthesis appears unchanged. Mild degenerative changes of the medial femor al tibial joint space of the right knee. Spurring at the articular aspect of the patella. The ankle joints are unremarkable. Hips: Moderate to severe degenerative changes of both hips, right greater than left. SOFT TISSUE: Vascular calcifications. IMPRESSION: Degenerative changes of both hips, right greater than left. Mild degenerative changes of the right knee. Unremarkable left knee prosthesis. No significant overall leg length discrepancy. DATA REPOSITORY: RADIATION DOSE DELIVERED:
== END 2023-09-28 13:13 | disposition home or self-care (01) ==
LOC: DIORS 13:12
PROVIDERS: PCP Family Medicine; Referring Provider Family Medicine; Visit Provider Student in an Organized Health Care Education/Training Program
DX: M17.11 Unilateral primary osteoarthritis, right knee (principal)
CPT/HCPCS: 99213; 73560; 77073

== ENCOUNTER → 2024-03-28 04:11 | Outpatient (CLI) | payer MEDICARE, SELFPAY ==
--- NOTE | 2024-03-28 07:00 | DI.CT_ITS ---
Exam(s) CT HEAD WO EXAM: CT HEAD WO CLINICAL HISTORY: headache x 1 month,r51.9. TECHNIQUE: Imaging Protocol: Axial computed tomography images with coronal and sagittal reformatted images were created and reviewed COMPARISON: No exams were available for comparison FINDINGS: Ventricles and Extra axial spaces: Normal in size and morphology for the patient's age. Hemorrhage: None. Cerebral parenchyma: There are areas of decreased attenuation in the white matter consistent with chr onic microvascular ischemic disease. There is a question of a subtle area of decreased attenuation i n the brainstem. This may represent artifact, mass, or chronic ischemic disease. Midline shift: None. Brainstem/Cerebellum: Normal. Calvarium: Normal. Visualized Paranasal sinuses/Mastoids: Clear. Soft Tissues: Unremarkable. IMPRESSION: 1. No acute intracranial process. 2. Question of a area of decreased attenuation in the brainstem. This area should be further evaluat ed with an MRI of the brain without and with contrast. Unexpected findings RADIATION DOSE DELIVERED: 845.91mGy.cm Total DLP DATA REPOSITORY: All CT scans at this facility are submitted to the National Radiology Data Registry (NRDR) Dose Index Registry (DIR) with the [employer] ([employer]). RADIATION OPTIMIZATION: All CT scans at this facility use at least one of these dose optimization te chniques: automated exposure control; mA and/or kV adjustment per patient size (includes targeted exa ms where dose is matched to clinical indication); or iterative reconstruction.
== END ==
PROVIDERS: PCP Family Medicine; Visit Provider Family Medicine
DX: R51.9 Headache, unspecified (principal)
CPT/HCPCS: 70450

== ENCOUNTER → 2024-04-20 04:25 | Outpatient (CLI) | payer MEDICARE, SELFPAY ==
[2024-04-20 12:47] LABS: CREATININE 1.3 mg/dL (0.70-1.30); Estimated GFR 54.85 (mL/min/1.73m2)
[2024-04-20] MEDS: Gadoterate meglumine 20 ML SYRINGE IVP (12:55)
[2024-04-20] MEDS: Normal Saline Flush 10 ML SYR IVP (12:55)
--- NOTE | 2024-04-20 13:30 | DI.MRI_ITS ---
Exam(s) MR BRAIN WO/W EXAM: MR BRAIN WO/W CLINICAL HISTORY: brainstem abnormality on CT, mass brain, G93.89 TECHNIQUE: Multiplanar multisequence MRI of the brain was performed. CONTRAST MATERIAL: IV Contrast: 20 mL of Dotarem contrast administered. COMPARISON: CT CT HEAD WO from 03/28/2024 FINDINGS: The examination is limited due to patient motion artifact. VENTRICLES AND EXTRA AXIAL SPACES: Normal in size and morphology for the patient's age. HEMORRHAGE: None. CEREBRAL PARENCHYMA: No focus of restricted diffusion to suggest acute infarct. No space-occupying le nidia identified. There are areas of hyperintense signal seen in the white matter on the FLAIR and T2 weighted images most consistent with chronic microvascular ischemic disease. There is normal signal seen in the brainstem. MIDLINE SHIFT: None. BRAINSTEM/CEREBELLUM: Normal. CALVARIUM: Normal. ENHANCEMENT: No suspicious enhancement identified. VISUALIZED PARANASAL SINUSES/MASTOIDS: Clear. INAJA OF MORSE: Normal flow void. PITUITARY GLAND: Unremarkable. OTHER FINDINGS: IMPRESSION: 1. Findings consistent with age-appropriate cerebral atrophy and chronic microvascular ischemic disea se. 2. No evidence of an acute infarct. 3. No evidence of an intracranial mass or enhancing lesion. 4. Normal appearance of the brainstem. DATA REPOSITORY:
== END ==
PROVIDERS: PCP Family Medicine; Visit Provider Family Medicine
DX: G93.89 Other specified disorders of brain (principal)
CPT/HCPCS: 70553; 82565

== ENCOUNTER 2024-09-29 01:11 | Outpatient (CLI) | payer MEDICARE, SELFPAY ==
--- NOTE | 2024-09-29 09:45 | DI.RAD_ITS ---
Exam(s) XR FOOT RT COMPLETE EXAM: XR FOOT RT COMPLETE CLINICAL HISTORY: Right foot pain,m79.671. TECHNIQUE: 2D digital imaging was performed of the right foot. Three images were obtained. AP, obl ique and lateral views were obtained. COMPARISON: There are no priors for comparison. FINDINGS: BONES: No acute fracture is present. No bony destructive lesion is seen. JOINTS: No dislocation present. There is a hallux valgus deformity. Degenerative changes are seen in the foot particularly at the 1st MTP but joint where there is joint space narrowing and osteophytes. Subchondral cysts are also seen. There also degenerative changes seen at the ankle joint particula rly anteriorly where there is narrowing of the joint space and small osteophytes present. Hammertoe deformity of the 2nd, 3rd and 4th toes is noted. SOFT TISSUE: Vascular calcifications are present. IMPRESSION: Degenerative changes and hallux valgus deformity. DATA REPOSITORY: RADIATION DOSE DELIVERED:
--- NOTE | 2024-09-29 09:45 | DI.RAD_ITS ---
Exam(s) XR FOOT LT COMPLETE EXAM: XR FOOT LT COMPLETE CLINICAL HISTORY: Left foot pain,m79.672. TECHNIQUE: 2D digital imaging was performed of the left foot. Three images were obtained. AP, obli que and lateral views were obtained. COMPARISON: No exams were available for comparison FINDINGS: BONES: No acute fracture is present. No bony destructive lesion is seen. There is a hammertoe deformi ty of the 2nd toe. There also appears to be some overlap of the 1st and 2nd toes. JOINTS: No dislocation present. SOFT TISSUE: Vascular calcifications are present. IMPRESSION: No acute abnormality. DATA REPOSITORY: RADIATION DOSE DELIVERED:
== END 2024-09-29 01:31 ==
LOC: DI 01:11
PROVIDERS: PCP Family Medicine; Visit Provider Podiatrist
DX: M20.11 Hallux valgus (acquired), right foot (principal); M79.672 Pain in left foot
CPT/HCPCS: 73630

== ENCOUNTER 2025-03-02 12:01 | Outpatient (CLI) | payer MEDICARE, SELFPAY ==
--- NOTE | 2025-03-02 11:15 | DI.RAD_ITS ---
Exam(s) XR LUMBAR SPINE COMPLETE EXAM: XR LUMBAR SPINE COMPLETE CLINICAL HISTORY: eval LBP. TECHNIQUE: 2D digital imaging was performed. Five views. COMPARISON: CR XR LUMBAR SPINE COMPLETE from 08/29/2019 FINDINGS: BONES: No fracture or destructive lesion. Mild compression of the superior endplates L4 and L5 appe ar stable. Facet degenerative changes are present throughout, greatest at L4-5. DISKS: There is severe narrowing of the L1-2 disc space. There is severe narrowing on the right side d L2-3 through L4-5. There is severe narrowing greater on the left at L5-S1. There are prominent en dplate osteophytes. ALIGNMENT: Levoscoliosis 2. SOFT TISSUE: Vascular calcifications. IMPRESSION: Stable compression fractures. Worsening of the of degenerative disc changes. DATA REPOSITORY: RADIATION DOSE DELIVERED:
--- NOTE | 2025-03-02 11:15 | DI.RAD_ITS ---
Exam(s) XR HIP PELVIS ADULT BL EXAM: XR HIP PELVIS ADULT BL CLINICAL HISTORY: eval bilateral hip pain. TECHNIQUE: 2D digital imaging was performed. Three views. COMPARISON: CR XR HIP RT COMPLETE AP PELVIS from 08/29/2019 FINDINGS: BONES: No acute fracture is present. No bony destructive lesion is seen. JOINTS: No dislocation present. SI joints and pubic symphysis are unremarkable. There is moderate to severe narrowing of the right hip joint space. There is periarticular spurring and subchondral cy st formation. There is moderate narrowing of the left hip joint space and mild periarticular spurrin g. SOFT TISSUE: Vascular calcifications. IMPRESSION: Moderate to severe degenerative changes of the hips, right greater than left. DATA REPOSITORY: RADIATION DOSE DELIVERED:
== END 2025-03-02 12:02 | disposition home or self-care (01) ==
LOC: DIORS 12:02
PROVIDERS: PCP Family Medicine; Referring Provider Family Medicine; Visit Provider Student in an Organized Health Care Education/Training Program
DX: M47.816 Spondylosis without myelopathy or radiculopathy, lumbar region (principal); M16.0 Bilateral primary osteoarthritis of hip; M00.88 Arthritis due to other bacteria, vertebrae
CPT/HCPCS: 73521; 99214; 72110

== ENCOUNTER 2025-03-29 12:37 | Outpatient (CLI) | payer MEDICARE, SELFPAY ==
--- NOTE | 2025-03-29 12:15 | DI.RAD_ITS ---
Exam(s) XR CHEST 2V PA LATERAL EXAM: XR CHEST 2V PA LATERAL CLINICAL HISTORY: cough, wheezing, crackles R05.9 COUGH TECHNIQUE: 2D digital imaging was performed of the chest. Two images were obtained. PA and lateral views were obtained. COMPARISON: No exams were available for comparison FINDINGS: MEDIASTINUM: Normal. HEART: Normal. PULMONARY VASCULATURE: Normal. LUNGS: There are increased lung markings in the left lower lobe. The right lung is clear. PLEURAL SPACE: No pleural effusion or pneumothorax. BONE:Within normal limits for the patient's age. Bilateral shoulder replacements. There is an old l eft clavicular fracture deformity. OTHER FINDINGS:Normal. IMPRESSION: Linear markings in the left lower lobe which may represent atelectasis, scarring or pneumonia. Pleas e correlate clinically. Follow-up as clinically appropriate. DATA REPOSITORY: RADIATION DOSE DELIVERED:
== END 2025-03-29 12:57 ==
LOC: DI 12:38
PROVIDERS: PCP Family Medicine; Visit Provider Nurse Practitioner Family
DX: R05.9 Cough, unspecified (principal)
CPT/HCPCS: 71046

== ENCOUNTER 2025-08-10 08:42 | Outpatient (CLI) | payer MEDICARE, SELFPAY ==
[2025-08-10 14:51] LABS: Anion Gap 7.5 mmol/L (3-11); BUN 18 mg/dL (7-18); CO2 27.5 mmol/L (21.0-32.0); Calcium 9.4 mg/dL (8.5-10.1); Calculated LDL 71 mg/dL (<100); Chloride 104 mmol/L (98-107); Cholesterol 128 mg/dL (<200); Estimated GFR 54.17 (mL/min/1.73m2); Glucose 100 mg/dL (74-106); HDL Cholesterol 47 mg/dL (>or=40); Potassium 4.6 mmol/L (3.5-5.1); Sodium 139 mmol/L (136-145); Triglyceride 51 mg/dL (<150)
[2025-08-10 22:23] LABS: PSA, Screening 14.4 ng/mL (<=6.5)
== END 2025-08-10 08:43 | disposition home or self-care (01) ==
PROVIDERS: PCP Family Medicine; Referring Provider Nurse Practitioner Family; Visit Provider Nurse Practitioner Family
DX: Z12.5 Encounter for screening for malignant neoplasm of prostate (principal); I10 Essential (primary) hypertension; Z13.6 Encounter for screening for cardiovascular disorders
CPT/HCPCS: 36415; 80048; 80061; 84153

== ENCOUNTER → 2025-09-21 09:23 | Outpatient (BNVA) | payer MEDICARE, SELFPAY | PROVIDERS: PCP Family Medicine; Referring Provider Family Medicine; Visit Provider Student in an Organized Health Care Education/Training Program | DX: M16.0 Bilateral primary osteoarthritis of hip (principal) | CPT/HCPCS: 99213 ==